=== PATIENT | female | born 1995 | race Caucasian/White ===

== ENCOUNTER 2023-10-06 18:37 | Emergency (ER) | payer BC, MEDICAID ==
[~2023-10-06] VITALS: Ht 157.5 cm; Wt 66.7 kg
[2023-10-06 18:41] VITALS: BP 115/74; PULSE 99; RESP 18
[2023-10-06 19:13] LABS: RAPID GROUP A STREP negative (NEGATIVE)
[2023-10-06 19:15] LABS: SARS-CoV-2, RNA, NAAT NEGATIVE SARS CoV-2 (NEGATIVE)
[2023-10-06 19:23] LABS: INFLUENZA TYPE A Negative For Type A (NEGATIVE); INFLUENZA TYPE B Negative For Type B (NEGATIVE)
[2023-10-06] MEDS: PREDNISONE 20 MG TABLET PO ONE (19:49)
[2023-10-06] MEDS: ACETAMINOPHEN 325 MG TAB PO ONE (19:51)
[2023-10-06 20:08] LABS: ADD UA MICROSCOPIC YES; APPEARANCE,URINE CLEAR (CLEAR); BILIRUBIN,URINE NEGATIVE (NEGATIVE); COLOR,URINE COLORLESS (YELLOW); GLUCOSE, URINE (UA) NEGATIVE (NEGATIVE); KETONES,URINE NEGATIVE (NEGATIVE); LEUKOCYTE ESTERASE ,URINE NEGATIVE Leu/uL (NEGATIVE); NITRATE,URINE NEGATIVE (NEGATIVE); OCCULT BLOOD,URINE NEGATIVE (NEGATIVE); PH,URINE 6.5 (5.0-8.0); PROTEIN,URINE NEGATIVE (NEGATIVE); UROBILINOGEN,URINE 0.2 mg/dL (0.2-1.0)
[2023-10-06 20:09] LABS: MUCUS,URINE RARE LPF (None Seen); RBC,URINE 0-1 /HPF (0-1); SQUAMOUS EPITHELIAL CELL,UR FEW /HPF (0-2); WBC,URINE 0-1 /HPF (0-1)
[2023-10-06] MEDS ORDERED: PRED20TA3 PO (20:24)
== END 2023-10-06 20:48 | disposition home or self-care (01) ==
LOC: EDH 18:37
DX: J06.9 Acute upper respiratory infection, unspecified (principal); Z20.822 Contact with and (suspected) exposure to COVID-19; Z98.890 Other specified postprocedural states; Z88.8 Allergy status to other drugs, medicaments and biological substances
CPT/HCPCS: 81001; 87635; 87804; 87880

== ENCOUNTER 2023-10-10 21:25 | Emergency (ER) | payer BC, MEDICAID ==
[~2023-10-10] VITALS: Ht 157.5 cm; Wt 65.8 kg
[~2023-10-10 21:25] MED LIST: PRED20TA3 PO
[2023-10-10 23:35] VITALS: BP 118/68; PULSE 72; RESP 16; O2SAT 100
== END 2023-10-10 23:36 | disposition home or self-care (01) ==
LOC: EDH 21:25
DX: H92.02 Otalgia, left ear (principal); R09.81 Nasal congestion; Z98.890 Other specified postprocedural states; Z88.8 Allergy status to other drugs, medicaments and biological substances
CPT/HCPCS: 99281